=== PATIENT | male | born 1960 | race Caucasian/White ===

== ENCOUNTER 2019-10-06 13:09 | Inpatient (IN) | payer BC ==
[~2019-10-06] VITALS: Ht 172.7 cm; Wt 93.6 kg
[~2019-10-06 13:09] MED LIST: NORCO 5-325 TA1 EACH PO
[2019-10-06 13:26] VITALS: BP 170/101
--- NOTE | 2019-10-06 14:00 | NUR ---
PETRONA MCMANUS IS TALKING TO THE ATTENDING PHYSICIAN REGARDING IF MEDICATION CHOICE FOR ANTIBIOTIC IS APPROPRIATE PRIOR TO ADMINISTRATION. THIS IS WHY MEDICATION MAY BE ADMINISTERED LATE.
[2019-10-06 14:05] LABS: ABSOLUTE BASOPHILS 0.1 thou/uL (0.0-0.2); ABSOLUTE EOSINOPHILS 0.1 thou/uL (0.0-0.7); ABSOLUTE LYMPHOCYTES 0.8 thou/uL (0.8-5.3); ABSOLUTE MONOCYTES 0.4 thou/uL (0.0-1.2); ABSOLUTE NEUTROPHILS 4.4 thou/uL (1.6-8.1); BASOPHILS 1.2 %; EOSINOPHILS 2.6 %; HEMATOCRIT 40.9 % (42.0-52.0); HEMOGLOBIN 13.3 gm/dL (14.0-18.0); LYMPHOCYTES 13.5 %; MCH 21.1 pg (26.0-34.0); MCHC 32.7 g/dL (28.0-37.0); MCV 64.6 fL (80.0-100.0); MONOCYTES 6.2 %; MPV 10.7 fl. (7.2-11.1); NUCLEATED RBCS 0 /100WBC; PLATELET COUNT* 185 thou/uL (150-400); POLYS 76.5 %; RBC 6.32 mil/uL (4.50-6.00); RDW-CV 16.6 % (10.5-14.5); WBC 5.8 thou/uL (4.0-11.0)
[2019-10-06 14:09] LABS: CALCIUM 8.9 mg/dL (8.5-10.1); CREATININE 1.1 mg/dL (0.6-1.3); POTASSIUM 3.7 mmol/L (3.5-5.1)
[2019-10-06 14:14] LABS: ALBUMIN 3.9 g/dL (3.4-5.0); TOTAL BILIRUBIN 0.8 mg/dL (<0.1-1.0); TOTAL PROTEIN 8.1 g/dL (6.4-8.2)
[2019-10-06 14:46] LABS: HYPOCHROMASIA 1+; MICROCYTES 1+; TARGET CELLS 1+
[2019-10-06 15:57] VITALS: BP 135/70
[2019-10-06 16:23] VITALS: BP 144/85
--- NOTE | 2019-10-06 18:04 | NUR ---
PATIENT ADMITTED TO ROOM 107 FROM ER. ALERT AND ORIENTED. LEFT LEG NOTED TO HAVE ABCESS, PHOTO OBTAINED AND SURGERY CONSULTED. REG DIET. IVF AND SCHED ABX INFUSING ORDERED. ORIENTED TO CALL LIGHT. CALL LIGHT WITHIN REACH, WILL CONTINUE TO MONITOR.
[2019-10-07] VITALS: BP 148/82
--- NOTE | 2019-10-07 06:34 | NUR ---
PT A&O, VSS ON RA. I&DED BEDSIDE AT 2250. NO C/O PAIN. SCHEDULED IBUPROFEN GIVEN FOR HEADACHE. LT LEG ELEVATED ON PILLOW. DRESSING C/D/I. PT SLEEPING/RESTING THROUGH THE NIGHT. NO OTHER CONCERNS AT THIS TIME. WILL CONTINUE TO MONITOR.
[2019-10-07 08:15] VITALS: BP 156/85
[2019-10-07] MEDS ORDERED: AMOX TR-K CLV1 EAC4 PO (12:58)
[2019-10-07 13:43] VITALS: BP 156/85
[2019-10-07] MEDS ORDERED: TYLENOL325 MG PO (13:47)
--- NOTE | 2019-10-07 14:50 | NUR ---
PATIENT DISCHARGED TO HOME. DISCHARGE PAPERS REVIEWED AND SIGNED. PRESCRIPTION AND INFORMATION SHEETS GIVEN. IV REMOVED. DRESSING SUPPLIES GIVEN IF NEEDED. PATIENT DENIES ANY FURTHER NEEDS. PATIENT TAKEN BY WHEELCHAIR TO EXIT. LEFT WITH .
== END 2019-10-07 14:50 | disposition home or self-care (01) | DRG 580 ==
LOC: M.ERS 13:09 → M.TBA-ER 14:45 → M.ORTHSURG 16:21
PROVIDERS: Physician Assistant; ADMIT Internal Medicine; ATTEND Internal Medicine
PROC: 0J9P0ZZ Drainage of Left Lower Leg Subcutaneous Tissue and Fascia, Open Approach (ICD-10-PCS; principal; 2019-10-06)
PROC: 0H9LXZZ Drainage of Left Lower Leg Skin, External Approach (ICD-10-PCS; principal; 2019-10-06)
DX: L03.116 Cellulitis of left lower limb (principal); Z16.20 Resistance to unspecified antibiotic; L02.416 Cutaneous abscess of left lower limb; B95.62 Methicillin resistant Staphylococcus aureus infection as the cause of diseases classified elsewhere; Z87.442 Personal history of urinary calculi; Z72.89 Other problems related to lifestyle; Z79.899 Other long term (current) drug therapy; Z03.818 Encounter for observation for suspected exposure to other biological agents ruled out; Z23 Encounter for immunization

== ENCOUNTER 2020-04-05 16:21 | Emergency (ER) | payer BC ==
[~2020-04-05] VITALS: Ht 172.7 cm; Wt 95.3 kg
[~2020-04-05 16:21] MED LIST changes: +AMOX TR-K CLV1 EAC4 PO; +TYLENOL325 MG PO
[2020-04-05] MEDS ORDERED: BACTRIM DS TAB1 EACH PO (18:13)
[2020-04-05] MEDS ORDERED: KEFLEX500 M1 PO (18:13)
[2020-04-05 18:31] VITALS: BP 141/70
== END 2020-04-05 18:31 | disposition home or self-care (01) ==
LOC: M.ERS 16:21
DX: L03.116 Cellulitis of left lower limb (principal); Z79.899 Other long term (current) drug therapy